=== PATIENT | female | born 1970 | race African-American/Black ===

== ENCOUNTER 2016-09-19 14:56 | Emergency (ER) | payer MEDICARE, MEDICAID ==
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
== END 2016-09-19 16:35 | disposition home or self-care (01) ==
LOC: NAV ERS 14:56
DX: S93.402A Sprain of unspecified ligament of left ankle, initial encounter (principal); M19.072 Primary osteoarthritis, left ankle and foot; E03.9 Hypothyroidism, unspecified; F31.9 Bipolar disorder, unspecified; F41.9 Anxiety disorder, unspecified; Z79.899 Other long term (current) drug therapy; V89.2XXA Person injured in unspecified motor-vehicle accident, traffic, initial encounter

== ENCOUNTER 2017-02-06 12:07 | Emergency (ER) | payer MEDICARE, MEDICAID ==
[2017-02-06] MEDS ORDERED: Ketorolac Tromethamine 60 MG/2 ML VIAL ONE (12:48)
--- NOTE | 2017-02-06 13:35 | RAD ---
RIGHT ELBOW FOUR VIEWS: History: 46-year-old female with fall last night. Pain in right elbow. IMPRESSION: No fracture, dislocation, or other significant acute osseous abnormality. POS: [facility]
== END 2017-02-06 13:48 | disposition home or self-care (01) ==
LOC: NAV ERS 12:07
DX: S50.01XA Contusion of right elbow, initial encounter (principal); E03.9 Hypothyroidism, unspecified; F41.9 Anxiety disorder, unspecified; F20.9 Schizophrenia, unspecified; F33.9 Major depressive disorder, recurrent, unspecified; Z79.899 Other long term (current) drug therapy; W06.XXXA Fall from bed, initial encounter
CPT/HCPCS: 96372; J1885

== ENCOUNTER 2017-03-26 17:25 | Emergency (ER) | payer MEDICARE, MEDICAID | END 2017-03-26 18:00 | disposition home or self-care (01) | LOC: NAV ERS 17:25 | DX: J01.90 Acute sinusitis, unspecified (principal); E03.9 Hypothyroidism, unspecified; F31.9 Bipolar disorder, unspecified; F20.9 Schizophrenia, unspecified; Z79.899 Other long term (current) drug therapy | CPT/HCPCS: 99283 ==

== ENCOUNTER 2019-05-20 09:57 | Emergency (ER) | payer MEDICARE, MEDICAID | END 2019-05-20 10:24 | disposition home or self-care (01) | LOC: NAV ERS 09:57 | DX: J06.9 Acute upper respiratory infection, unspecified (principal); E03.9 Hypothyroidism, unspecified; F41.9 Anxiety disorder, unspecified; F31.9 Bipolar disorder, unspecified; F20.9 Schizophrenia, unspecified; Z79.899 Other long term (current) drug therapy | CPT/HCPCS: 99283 ==

== ENCOUNTER 2021-03-30 10:18 | Emergency (ER) | payer MEDICARE, MEDICAID | END 2021-03-30 12:45 | disposition home or self-care (01) | LOC: NAV ERS 10:18 | DX: J02.9 Acute pharyngitis, unspecified (principal); E03.9 Hypothyroidism, unspecified; E11.9 Type 2 diabetes mellitus without complications; K21.9 Gastro-esophageal reflux disease without esophagitis; Z79.899 Other long term (current) drug therapy | CPT/HCPCS: 70360; 87081; 87430 ==

== ENCOUNTER 2021-04-01 07:59 | Emergency (ER) | payer MEDICARE, MEDICAID ==
[2021-04-01] MEDS ORDERED: Lidocaine Viscous Sol 2% 15 ml UD Cup ONE (08:52)
[2021-04-01] MEDS ORDERED: Mag-Al Plus 1200 MG/1200 MG/120 MG/30 ML UDCUP ONE (08:52)
[2021-04-01] MEDS ORDERED: Ketorolac Tromethamine 60 MG/2 ML VIAL ONE (09:26)
[2021-04-01] MEDS ORDERED: methylPREDNISolone Sod Succ/PF 125 MG/2 ML VIAL ONE (09:26)
[2021-04-02 15:28] LABS: SARS-CoV-2 PCR by NAA Not Detected (NotDetected)
== END 2021-04-01 09:50 | disposition home or self-care (01) ==
LOC: NAV ERS 07:59
DX: J02.9 Acute pharyngitis, unspecified (principal); Z20.822 Contact with and (suspected) exposure to COVID-19; E03.9 Hypothyroidism, unspecified; K21.9 Gastro-esophageal reflux disease without esophagitis; E11.9 Type 2 diabetes mellitus without complications; Z79.899 Other long term (current) drug therapy
CPT/HCPCS: U0003; U0005; 96372; 99283; J1885; J2930

== ENCOUNTER 2021-10-07 08:55 | Emergency (ER) | payer MEDICARE, MEDICAID | END 2021-10-07 09:35 | disposition home or self-care (01) | LOC: NAV ERS 08:55 | DX: M25.561 Pain in right knee (principal); E03.9 Hypothyroidism, unspecified; K21.9 Gastro-esophageal reflux disease without esophagitis; Z79.899 Other long term (current) drug therapy | CPT/HCPCS: 99283 ==

== ENCOUNTER 2022-02-02 10:24 | Emergency (ER) | payer MEDICARE, MEDICAID | END 2022-02-02 11:45 | disposition home or self-care (01) | LOC: NAV ERS 10:24 | DX: H61.23 Impacted cerumen, bilateral (principal); E03.9 Hypothyroidism, unspecified; K21.9 Gastro-esophageal reflux disease without esophagitis; Z79.899 Other long term (current) drug therapy | CPT/HCPCS: 69209 ==

== ENCOUNTER 2022-09-05 14:00 | Emergency (ER) | payer MEDICARE, MEDICAID ==
[2022-09-05] MEDS ORDERED: Ibuprofen 800 MG TAB ONE (14:23)
== END 2022-09-05 14:28 | disposition home or self-care (01) ==
LOC: NAV ERS 14:00
DX: S91.159A Open bite of unspecified toe(s) without damage to nail, initial encounter (principal); E03.9 Hypothyroidism, unspecified; K21.9 Gastro-esophageal reflux disease without esophagitis; Z79.899 Other long term (current) drug therapy; W57.XXXA Bitten or stung by nonvenomous insect and other nonvenomous arthropods, initial encounter
CPT/HCPCS: 99283

== ENCOUNTER 2023-01-28 13:18 | Emergency (ER) | payer MEDICAID, MEDICARE | END 2023-01-28 13:55 | disposition home or self-care (01) | LOC: NAV ERS 13:18 | DX: B34.9 Viral infection, unspecified (principal); L08.9 Local infection of the skin and subcutaneous tissue, unspecified; E03.9 Hypothyroidism, unspecified; K21.9 Gastro-esophageal reflux disease without esophagitis; I10 Essential (primary) hypertension | CPT/HCPCS: 99283 ==

== ENCOUNTER 2023-03-13 11:35 | Emergency (ER) | payer OTHER | END 2023-03-13 12:30 | disposition home or self-care (01) | LOC: NAV ERS 11:35 | DX: G89.29 Other chronic pain (principal); M17.11 Unilateral primary osteoarthritis, right knee; I10 Essential (primary) hypertension ==

== ENCOUNTER 2023-09-18 10:30 | Emergency (ER) | payer OTHER ==
[2023-09-18 11:02] LABS: Bilirubin Small (Negative); Blood, Urine Small (Negative); Clarity Clear (Clear); Glucose, Urine (Dipstick) Negative (Negative); Ketone, Urine Trace mg/dL (Negative); Leukocyte Large (Negative); Nitrite Negative (Negative); Protein, Urine (Dipstick) Trace mg/dL (Neg-Trace); Urobilinogen 0.2 mg/dL (Less than 2); pH, Urine 5.5 (5.0-9.0)
[2023-09-18 11:19] LABS: #Basophils 0.1 thou/uL (0.0-0.2); #Eosinphils 0.1 thou/uL (0.0-0.7); #Lymphocytes 1.3 thou/uL (1.20-3.40); #Monocytes 0.3 thou/uL (0.11-0.59); #Neutrophils 5.2 thou/uL (1.40-6.50); %Basophils 0.7 % (0.0-1.0); %Eosinophils 1.4 % (0.0-10.0); %Lymphocytes 18.5 % (21.0-51.0); %Monocytes 4.1 % (0.0-10.0); %Neutrophils 75.2 % (42.0-75.0); Hematocrit 45.2 % (36.0-47.0); Hemoglobin 13.7 g/dL (12.0-16.0); Mean Corpuscular HGB CONC 30.2 g/dL (32.0-36.0); Mean Corpuscular Hemoglobin 28.3 pg (27.0-31.0); Mean Corpuscular Volume 93.6 fl (78.0-98.0); Mean Platelet Volume 6.9 fL (7.4-10.4); Platelet Count 221 10x3/uL (130-400); RBC Distribution Width 12.3 % (11.5-14.5); Red Blood Cell (RBC) Count 4.83 mill/uL (4.20-5.40); White Blood Cell (WBC) Count 6.9 10x3/uL (4.8-10.8)
[2023-09-18 11:29] LABS: Bacteria/HPF 1+ HPF (None Seen); CAUTI Indications for Culture Fever or rigors; RBC/HPF 0-3 HPF (0-3)
[2023-09-18 11:31] LABS: ALT (SGPT) 10 U/L (8-55); AST (SGOT) 10 U/L (5-34); Albumin 3.6 g/dL (3.5-5.0); Alkaline Phosphatase 85 U/L (40-110); Anion Gap 16 mmol/L (10-20); BUN (Urea Nitrogen) 10 mg/dL (9.8-20.1); Bilirubin, Total 0.2 mg/dL (0.2-1.2); Calc. Creatinine Clearance 0 mL/min (70-130); Calcium 9.1 mg/dL (7.8-10.44); Carbon Dioxide 18 mmol/L (22-29); Chloride 108 mmol/L (98-107); Estimated GFR 83; Globulin 3.6 g/dL (2.4-3.5); Glucose 123 mg/dL (70-105); Potassium 3.8 mmol/L (3.5-5.1); Protein, Total 7.2 g/dL (6.0-8.3); Sodium 138 mmol/L (136-145)
[2023-09-18 11:32] LABS: Urine Culture Reflex Yes Yes
[2023-09-18 11:34] LABS: Influenza A by NAA Not Detected (NotDetected); Influenza B by NAA Not Detected (NotDetected); SARS-CoV-2 NAA Rapid Test Not Detected (NotDetected)
[2023-09-18 11:37] LABS: Specific Gravity, Urine 1.028 (1.002-1.036)
== END 2023-09-18 11:48 | disposition home or self-care (01) ==
LOC: NAV ERS 10:30
DX: J18.9 Pneumonia, unspecified organism (principal); N39.0 Urinary tract infection, site not specified; F31.9 Bipolar disorder, unspecified; I10 Essential (primary) hypertension; Z79.899 Other long term (current) drug therapy
CPT/HCPCS: 36415; 71046; 80053; 81001; 85025; 87086

== ENCOUNTER 2023-09-24 19:24 | Emergency (ER) | payer OTHER | END 2023-09-24 20:45 | disposition home or self-care (01) | LOC: NAV ERS 19:24 | DX: J18.9 Pneumonia, unspecified organism (principal); I10 Essential (primary) hypertension | CPT/HCPCS: 71046 ==